=== PATIENT | male | born 1970 | race Hispanic/Latino ===

== ENCOUNTER 2022-10-12 11:03 | Emergency (ER) | payer MEDICAID, SELFPAY ==
[2022-10-12 11:06] VITALS: BP 151/83; PULSE 84; RESP 16; TEMP 36.9; O2SAT 98; BMI 29.8
--- NOTE | 2022-10-12 12:05 | EX.ED.GUMALE ---
HPI History of Present Illness Chief Complaint: Complaint Detail of Chief Complaint: Gross hematuria Informant: patient and spouse/S.O. Pain Onset: Today, Yesterday and Days Context: Gradual Onset Timing: Continuous Current Severity: Mild Maximum Severity: Mild Narrative Narrative: 52-year-old male does not speak [place]. Has a history of BPH. Denies any prior urologic surgeries. States the last 2 days he has had gross hematuria. He wants his blood count checked. He is able to urinate. He denies any significant clots. He denies any significant pain. He is on no blood thinners. Prior similar symptoms: Yes Recent Illness/Hospitalization: No PFSH PFSH Medical History Anxiety and depression BPH (benign prostatic hyperplasia) FHx: cholecystectomy Insomnia PTSD (post-traumatic stress disorder) Home Medications escitalopram oxalate 10 mg tablet 10 mg PO DAILY 10/12/22 [History Last Taken Unknown] sildenafil 100 mg tablet 100 mg PO DAILY 10/12/22 [History Last Taken Unknown] tamsulosin 0.4 mg capsule (Flomax) 0.4 mg PO QHS 10/12/22 [History Last Taken Unknown] Allergy/AdvReac Type Severity Reaction Status Date / Time No Known Allergies Allergy Verified 10/12/22 11:15 Surgical History H/O shoulder surgery Social History Smoking Status: Never smoker ROS ROS ED ROS Narrative Hematuria. Review of Systems ROS Unobtainable: Denies due to encephalopathy Constitutional Constitutional ED: Denies chills or fever(s) Eyes Eyes: Denies blurry vision ENT ENT ED: Denies ear pain Cardiovascular Cardiovascular: Denies chest pain Respiratory/Chest Respiratory/Chest: Denies cough or dyspnea Gastrointestinal Gastrointestinal: Denies abdominal pain Genitourinary Genitourinary ED: Reports hematuria; Denies dysuria Musculoskeletal Musculoskeletal: Denies arthralgias Integumentary Denies abscess Neurologic Neurologic: Denies headache(s) Psychiatric Psychiatric: Denies anxiety Endocrine Endocrinology: Denies polydipsia Hematologic/Lymphatic Hematologic/Lymphatic: Denies easy bleeding Allergic/Immunologic Allergic/Immunologic ED: Denies mouth swelling or tongue swelling EXAM Physical Exam Narrative Exam Narrative: 2-year-old male vital signs stable afebrile. He does not look septic or toxic. He is no distress. Family at bedside. He does not speak [place] freelance interpreter/translator phone was used. H EENT exam unremarkable. Lungs clear. Heart regular rhythm. Rate about 80. No murmur. Abdomen soft. Nondistended. Normal bowel sounds. No peritoneal signs. No tender. External exam unremarkable. No gross blood at this time. No lesions. No discharge. Moving all 4 extremities. Nontender no edema. Neurologically is awake and alert. No focal motor deficits. Const Vital Signs: 10/12/22 11:06 Temperature 98.5 F Temperature Source Temporal Pulse Rate 84 Respiratory Rate 16 Blood Pressure 151/83 H Blood Pressure Mean 105 Pulse Ox 98 Oxygen Delivery Method Room Air Positive well nourished and well developed; Negative for obese, cachectic, contractures or unkempt General Appearance ED: well developed; Negative for unkempt, cachectic, contractures or pallor Nutritional Appearance: Negative for cachectic or obese HEENT Reports moist mucous membranes; Denies dry mucous membranes normocephalic and atraumatic; Negative for trauma or tenderness Mouth ED: No dry mucous membranes Mouth: No dry mucous membranes Eyes PERRL and EOMs intact bilaterally General Eye ED: Negative for pale conjunctiva or scleral icterus Neck no lymphadenopathy, supple and no JVD General: Negative for tenderness Resp normal respiratory effort and clear to auscultation bilaterally Effort and Inspection: Negative for retractions Auscultation: Negative for rales, rhonchi or wheezes Cardio regular rate, regular rhythm, S1 normal heart sound, S2 normal heart sound and no murmurs Rate: Negative for bradycardia or tachycardic Rhythm: Negative for abnormal rhythm GI non-tender and non-distended Inspection: Negative for abdominal distention Auscultation: normoactive bowel sounds Palpation: soft; Negative for tender or guarding no CVA tenderness Bladder / Kidney Exam: No CVA tenderness Groin / Perineum Exam: Negative for edema Back/Spine no CVA tenderness General Back: Negative for CVA tenderness Cervical Spine: Negative for cervical spine tenderness Thoracic Spine / Upper Back: Negative for thoracic spinal tenderness Extremity normal to inspection General Extremety ED: Negative for edema General Extremity: Negative for edema Neuro oriented x3, moves all extremities and no focal motor deficits Sensorium / Orientation: alert, oriented to person, oriented to place and oriented to time; Negative for orientation impaired, confused or lethargic Motor Exam: strength 5/5 throughout Psych mental status grossly normal Appearance: Negative for unkempt Attitude: No agitated Mood & Affect: Negative for depressed Thought Process: normal thought process Thought Content: normal thought content Skin General Skin Exam: Negative for jaundice or pallor Lesions: no lesions Rashes: no rashes MDM MDM MDM Narrative Medical decision making narrative: 52-year-old male with gross hematuria. History of BPH. Check screening labs. Consider UTI versus hematuria. I distal the moment I do not think he needs a Hanna catheter as long as he continues to urinate and is not passing large clots and will hold off on that. Repeat exam he is doing well at 2:52 PM. He will be discharged home to follow-up with his [facility] urologist. Return if worse or unable to urinate. Discussed with patient a Hanna catheter which she does not want to have. He will follow-up. Lab Data Attestation: I reviewed the patient's lab results. Lab results narrative: CBC unremarkable. White count 7.9. H&H of 14.8 and 46. Platelets 289. Electrolytes normal gap is 6 normal BUN of 10 and creatinine 0.9. Glucose 96. UA shows blood but no white cells or nitrates. Only 1+ bacteria. Labs: Laboratory Results - last 24 hr 10/12/22 10/12/22 10/12/22 12:25 12:25 12:25 WBC 7.9 RBC 5.32 Hgb 14.8 Hct 46.3 MCV 87.0 MCH 27.8 MCHC 32.0 RDW Std Deviation 43.3 RDW Coeff of Johanna 13.6 Plt Count 289 MPV 9.4 Immature Gran % (Auto) 0.300 Neut % (Auto) 49.7 Lymph % (Auto) 37.7 [place] % (Auto) 9.0 Eos % (Auto) 2.8 Baso % (Auto) 0.5 Absolute Neuts (auto) 3.9 Absolute Lymphs (auto) 2.96 Nucleated RBC % 0 Sodium 141 Potassium 3.6 Chloride 105 Carbon Dioxide 30.0 Anion Gap 6 BUN 10 Creatinine 0.90 Estim Creat Clear Calc 91.83 Est GFR (MDRD) Af Amer 113 Est GFR (MDRD) Non-Af 93 BUN/Creatinine Ratio 11.0 Glucose 96 Calcium 9.4 Urine Color Yellow Urine Clarity Sl. Cloudy Urine pH 5.0 Ur Specific [place] 1.020 Urine Protein 30 H Urine Glucose (UA) Normal Urine Ketones Negative Urine Occult Blood 250 H Urine Nitrite Negative Urine Bilirubin Negative Urine Urobilinogen Normal Ur Leukocyte Esterase 25 H Urine RBC 25-50 SEEN Urine WBC 0-5 SEEN Ur Squamous Epith Cells 0-5 SEEN Urine Bacteria 1+ Urine Mucus 0 SEEN Discharge Plan Triage Chief Complaint: Complaint ED Provider: Ash Ignacio Dx/Rx/DC Orders Clinical Impression: Hematuria Instructions: ED Hematuria Prescriptions: No Action sildenafil 100 mg Tablet 100 mg PO DAILY Rx Instructions: administer 30 minutes to 4 hours before activity tamsulosin [Flomax] 0.4 mg Capsule 0.4 mg PO QHS escitalopram oxalate 10 mg Tablet 10 mg PO DAILY Primary Care Provider: Care Physician,Tamar Primary Referrals: NOT,DEFINED [Non-Staff] - Activity Restrictions/Additional Instructions: Plenty of fluids to help get rid of the blood in your urine. If you start passing clots and are unable to urinate you need to return to get a Hanna catheter placed. Follow-up with your [facility] urologist as soon as possible.. Print Language: Armenian Disposition Disposition: Home, Self Care
[2022-10-12 12:32] LABS: Mucous, Urine 0 SEEN /hpf (<or=2+)
[2022-10-12 12:34] LABS: Absolute Lymphocyte Count 2.96 X10^3/uL (0.83-4.51); Absolute Neutrophil Count 3.9 X10^3/uL (2.0-7.7); Basophil# 0.04 X10^3/uL; Basophil% 0.5 % (0-1); Eosinophil# 0.22 X10^3/uL; Eosinophils% 2.8 % (0-5); Hematocrit 46.3 % (40-54); Hemoglobin 14.8 g/dL (13.0-16.5); Lymphocyte # 2.96 X10^3/ul (0.83-4.51); Lymphocyte % 37.7 % (19-41); Mean Corpuscular Hgb 27.8 pg (27.0-32.0); Mean Platelet Vol. 9.4 fl (6.2-12.0); Monocyte# 0.71 X10^3/uL; NRBC Flagged by Analyzer 0 % (0-5); Neutrophil % 49.7 % (47-70); Platelet Count 289 K/mm3 (150-450); RBC Distribution Width CV 13.6 % (11.6-14.6); RBC Distribution Width SD 43.3 fl (35.1-43.9); Red Blood Count 5.32 M/mm3 (4.6-6.2); White Blood Count 7.9 K/mm3 (4.4-11.0)
[2022-10-12 12:35] LABS: Color, Urine Yellow (Yellow); Glucose, Dipstick Normal (Normal); Ketone-Dipstick Negative (Negative); Leukocyte Esterase-Dipstick 25 /ul (Negative); Nitrite-Dipstick Negative (Negative); Occult Blood-Urine 250 /ul (Negative); Protein-Dipstick 30 mg/dl (Negative); Urine Bilirubin Dipstick Negative (Negative); Urine Clarity Sl. Cloudy (Clear); Urine Urobilinogen Normal (Normal)
[2022-10-12 12:45] LABS: Anion Gap 6 (5-15); BUN 10 mg/dL (7-18); Calcium,Total 9.4 mg/dL (8.5-10.1); Chloride 105 mmol/L (98-107); EST Glomerular Filtration Rate 93 mL/min (>60); Est Glom Filt Rate - Afr Amer 113 mL/min (>60); Estimated Creatinine Clearance 91.83 ml/min; Glucose 96 mg/dL (74-106); Potassium 3.6 mmol/L (3.5-5.1); Sodium Level 141 mmol/L (136-145)
[2022-10-12 12:46] LABS: Bacteria 1+ /hpf (None Seen); Red Blood Cells-Urine 25-50 SEEN /hpf (0-5); Squamous Epithelial Cells - UA 0-5 SEEN /hpf (0-5); White Blood Cells 0-5 SEEN /hpf (0-5)
== END 2022-10-12 15:06 | disposition home or self-care (01) ==
PROVIDERS: Emergency Provider Emergency Medicine; Visit Provider Emergency Medicine
DX: R31.0 Gross hematuria (principal); N40.0 Benign prostatic hyperplasia without lower urinary tract symptoms; Z79.899 Other long term (current) drug therapy
CPT/HCPCS: 80048; 81001; 85025; 99283